=== PATIENT | male | born 1995 | race Caucasian/White ===

== ENCOUNTER 2024-04-25 00:37 | Inpatient (IN) | payer OTHER ==
[~2024-04-25] VITALS: Ht 190.5 cm; Wt 70.6 kg
[2024-04-25] VITALS (55 sets, daily range): BP systolic 83–110; BP diastolic 43–75
[2024-04-25] MEDS ORDERED: NS 1,000 ML IV SCH (01:20)
[2024-04-25] MEDS ORDERED: LORazepam 1 MG Tab PO ONE (02:50)
[2024-04-25] MEDS ORDERED: LORazepam 2 MG/ML 1ML Injection IV ONE ×2 (03:50→05:15)
[2024-04-25 05:23] LABS: BASOPHILS ABSOLUTE AUTO 0.01 K/mm3 (0.00-0.23); BASOPHILS PERCENT AUTO 0 % (0-2); EOSINOPHILS ABSOLUTE AUTO 0.04 K/mm3 (0.00-0.68); EOSINOPHILS PERCENT AUTO 1 % (0-6); Hematocrit 35.1 % (37.0-53.0); IMMATURE GRAN ABSOLUTE AUTO 0.01 K/mm3 (0.00-0.10); IMMATURE GRAN PERCENT AUTO 0 % (0-1); LYMPHOCYTES ABSOLUTE AUTO 0.55 K/mm3 (0.84-5.20); LYMPHOCYTES PERCENT AUTO 15 % (21-46); MONOCYTES ABSOLUTE AUTO 0.31 K/mm3 (0.16-1.47); MONOCYTES PERCENT AUTO 9 % (4-13); Mean Corpuscular HGB 34.1 pg (26.0-34.0); Mean Corpuscular HGB Conc 34.2 g/dL (31.5-36.5); Mean Corpuscular Volume 100 fL (80-100); Mean Platelet Volume 12.4 fL (9.1-12.4); NEUTROPHILS ABSOLUTE AUTO 2.74 K/mm3 (1.96-9.15); NEUTROPHILS PERCENT AUTO 75 % (41-73); RDW Coefficient Variation 12.9 % (11.7-14.2); RDW Standard Deviation 47.7 fL (35.1-46.3); Red Blood Cell Count 3.52 M/mm3 (4.30-5.90); White Blood Cell Count 3.66 K/mm3 (4.00-11.30)
[2024-04-25 05:31] LABS: Platelet Count 25 K/mm3 (150-400)
[2024-04-25 05:48] LABS: Albumin/Globulin Ratio 0.7 (0.8-1.8); Bilirubin, Total 7.6 mg/dL (0.1-1.0); Bun/Creatinine Ratio 8.8 (12.0-20.0); Calcium, Blood 9.6 mg/dL (8.5-10.1); Creatinine, Blood 0.46 mg/dL (0.60-1.20); Globulin, Blood 4.4 g/dL (2.2-4.0); Potassium, Blood 3.2 mmol/L (3.5-5.5); Total Protein, Blood 7.4 g/dL (6.4-8.2)
[2024-04-25] MEDS ORDERED: Acetaminophen 325 MG TABLET PO PRN (06:15)
[2024-04-25] MEDS ORDERED: FLU VACC TS2024-25(6MOS UP)/PF 45 MCG/0.5 ML SYRINGE IM ONE (06:15)
[2024-04-25] MEDS ORDERED: LORazepam 2 MG/ML 1ML Injection IV PRN ×2 (06:15→06:20)
[2024-04-25] MEDS ORDERED: Haloperidol Lactate Inj. 5 MG/ML Injection IV ONE (06:15)
[2024-04-25] MEDS ORDERED: Midazolam HCL 1 MG/ML 5MLVIAL IV ONE (06:15)
[2024-04-25] MEDS ORDERED: Ondansetron HCl 2 MG / ML 2ML Vial IV PRN (06:20)
[2024-04-25 06:26] LABS: Bilirubin, Direct 5.9 mg/dL (0.0-0.3); Phosphorus, Blood 2.2 mg/dL (2.5-4.9)
[2024-04-25 06:29] LABS: Magnesium, Blood 0.8 mg/dL (1.6-2.4)
[2024-04-25] MEDS ORDERED: Folic Acid 1 MG in NS 50 ML IV SCH (06:31)
[2024-04-25] MEDS ORDERED: Thiamine HCl 100 MG in NS 50 ML IV SCH (06:32)
[2024-04-25] MEDS ORDERED: ChlordiazePOXIDE 25 MG Cap PO PRN (06:40)
[2024-04-25] MEDS ORDERED: Magnesium Sulf 2 GM/Water 50ML 50 ML IV ONE (06:45)
[2024-04-25] MEDS ORDERED: Potassium Chl 20MEQ/Water100ML 100 ML IV SCH (06:50)
[2024-04-25] MEDS ORDERED: Lactated Ringer's 1,000 ML IV SCH (07:00)
[2024-04-25] MEDS ORDERED: Potassium Chloride 20 MEQ TabCR PO ONE (07:00)
[2024-04-25 07:28] LABS: International Normalized Ratio 1.65
[2024-04-25] MEDS ORDERED: Mag Sulfate 1 GM/D5% 100ML 100 ML IV SCH (09:30)
[2024-04-25] MEDS ORDERED: Potassium Phosphate Dibasic 20 MM in Dextrose 5% 500 ML IV SCH (12:00)
[2024-04-25] MEDS ORDERED: MethylPREDNISolone Sod Succ 40 MG VIAL IV SCH (13:00)
[2024-04-25 13:04] LABS: BASOPHILS ABSOLUTE AUTO 0.02 K/mm3 (0.00-0.23); BASOPHILS PERCENT AUTO 1 % (0-2); EOSINOPHILS ABSOLUTE AUTO 0.06 K/mm3 (0.00-0.68); EOSINOPHILS PERCENT AUTO 2 % (0-6); Hematocrit 29.6 % (37.0-53.0); Hemoglobin 10.4 g/dL (13.5-17.5); IMMATURE GRAN ABSOLUTE AUTO 0.02 K/mm3 (0.00-0.10); IMMATURE GRAN PERCENT AUTO 1 % (0-1); LYMPHOCYTES ABSOLUTE AUTO 0.63 K/mm3 (0.84-5.20); LYMPHOCYTES PERCENT AUTO 20 % (21-46); MONOCYTES ABSOLUTE AUTO 0.33 K/mm3 (0.16-1.47); MONOCYTES PERCENT AUTO 10 % (4-13); Mean Corpuscular HGB 34.8 pg (26.0-34.0); Mean Corpuscular HGB Conc 35.1 g/dL (31.5-36.5); Mean Corpuscular Volume 99 fL (80-100); Mean Platelet Volume 11.6 fL (9.1-12.4); NEUTROPHILS ABSOLUTE AUTO 2.13 K/mm3 (1.96-9.15); NEUTROPHILS PERCENT AUTO 67 % (41-73); RDW Standard Deviation 46.7 fL (35.1-46.3); Red Blood Cell Count 2.99 M/mm3 (4.30-5.90); White Blood Cell Count 3.19 K/mm3 (4.00-11.30)
[2024-04-25 13:12] LABS: Platelet Count 30 K/mm3 (150-400)
[2024-04-25 13:32] LABS: Magnesium, Blood 1.8 mg/dL (1.6-2.4)
[2024-04-25 13:51] LABS: Albumin, Blood 2.5 g/dL (3.4-5.0); Albumin/Globulin Ratio 0.7 (0.8-1.8); Bilirubin, Total 6.8 mg/dL (0.1-1.0); Bun/Creatinine Ratio 10.4 (12.0-20.0); Calcium, Blood 9.1 mg/dL (8.5-10.1); Creatinine, Blood 0.38 mg/dL (0.60-1.20); Globulin, Blood 3.7 g/dL (2.2-4.0); Potassium, Blood 3.7 mmol/L (3.5-5.5); Total Protein, Blood 6.2 g/dL (6.4-8.2)
--- NOTE | 2024-04-25 17:35 | NUR ---
SHIFT SUMMARY PRECEDEX OFF FOR MOST OF SHIFT. MEDICATED WITH LIBRIUM AND ATIVAN PER EMAR FOR CIWA SCORES. MAX CIWA SCORE 14. PATIENT IS IMPULSIVE AT TIMES, BUT EASILY REDIRECTABLE. ABLE TO STAND AND PIVOT FROM BED TO CHAIR WITH GAIT BELT AND WALKER. PATIENT TOLERATED WATER INTAKE AND CLEAR LIQUID DIET WELL. NO FAMILY OR VISITORS AT BEDSIDE. PATIENT HAD URINARY RETENTION-BLADDER SCAN SHOWED 311ML IN BLADDER. LATER IN THE EVENING PATIENT WAS ABLE TO VOID 550ML. NO BM THIS SHIFT. LR REMAINS INF @ 100ML/HR X 1 BAG. NO OTHER CHANGES THIS SHIFT.
--- NOTE | 2024-04-25 21:36 | NUR ---
ASSUMPTION OF CARE PT LYING IN BED SLEEPING. PT AWAKES TO VOICE, REMAINS SLEEPY, WITH SLURRED VOICE BUT IS OTHERWISE ORIENTED, EXCEPT SPECIFICS OF EVENTS THAT LED HIM FROM [facility] TO [facility] ICU. PRECEDEX IS OFF. CIWA SCORE LOW. HR STABLE NSR AND BP STABLE. LUNGS CLEAR AND RESPIRATIONS UNLABORED. PT HANDLING CLEAR LIQUID DIET WITHOUT NAUSEA/VOMITING. LR INFUSING INTO ONCE OF 4 PIV AT 100 ML/HR. 25 OF LIBRIUM ADMINISTERED, ALONG WITH ROOM RE-ORIENTATION. PT LEFT WITH CALL LIGHT NEARBY.
[2024-04-26] VITALS (28 sets, daily range): BP systolic 86–115; BP diastolic 46–75
[2024-04-26] MEDS ORDERED: Pantoprazole Sodium 40 MG Injection IV SCH (06:00)
--- NOTE | 2024-04-26 06:35 | NUR ---
SHIFT SUMMARY PT LYING IN BED EATING CHICKEN NOODLE SOUP. PT AWAKES TO VOICE, REMAINS SLEEPY, WITH CLEAR VOICE AND MOSTLY ORIENTED, EXCEPT SPECIFICS OF EVENTS THAT LED HIM FROM [facility] TO [facility] ICU. PRECEDEX IS OFF. CIWA SCORE LOW. HR STABLE NSR AND BP STABLE. LUNGS CLEAR AND RESPIRATIONS UNLABORED. PT HANDLING CLEAR LIQUID DIET PLUS CRACKERS AND CHICKEN NOODLE SOUP WITHOUT NAUSEA/VOMITING. LR INFUSING INTO ONE OF 4 PIV AT 100 ML/HR. PT LEFT WITH CALL LIGHT NEARBY.
--- NOTE | 2024-04-26 07:09 | NUR ---
Bedside report from BENJAMIN Sue. Pt is sleeping but awakens easily to conversation. Denies nausea, pain. Per report tolerated clear liquids as well as chicken noodle soup and saltine crackers overnight. V/S are stable. Sinus rhythm, 93 bpm noted on bedside monitor.
--- NOTE | 2024-04-26 07:17 | NUR ---
LAB HERE TO DRAW BLOOD.
[2024-04-26 07:55] LABS: BASOPHILS ABSOLUTE AUTO 0.01 K/mm3 (0.00-0.23); BASOPHILS PERCENT AUTO 0 % (0-2); EOSINOPHILS ABSOLUTE AUTO 0.07 K/mm3 (0.00-0.68); EOSINOPHILS PERCENT AUTO 2 % (0-6); Hematocrit 30.6 % (37.0-53.0); Hemoglobin 10.3 g/dL (13.5-17.5); IMMATURE GRAN ABSOLUTE AUTO 0.02 K/mm3 (0.00-0.10); IMMATURE GRAN PERCENT AUTO 0 % (0-1); LYMPHOCYTES ABSOLUTE AUTO 0.66 K/mm3 (0.84-5.20); LYMPHOCYTES PERCENT AUTO 15 % (21-46); MONOCYTES ABSOLUTE AUTO 0.34 K/mm3 (0.16-1.47); MONOCYTES PERCENT AUTO 8 % (4-13); Mean Corpuscular HGB 34.7 pg (26.0-34.0); Mean Corpuscular HGB Conc 33.7 g/dL (31.5-36.5); Mean Corpuscular Volume 103 fL (80-100); NEUTROPHILS ABSOLUTE AUTO 3.44 K/mm3 (1.96-9.15); NEUTROPHILS PERCENT AUTO 76 % (41-73); RDW Coefficient Variation 13.2 % (11.7-14.2); RDW Standard Deviation 50.3 fL (35.1-46.3); Red Blood Cell Count 2.97 M/mm3 (4.30-5.90); White Blood Cell Count 4.54 K/mm3 (4.00-11.30)
[2024-04-26 08:03] LABS: Platelet Count 48 K/mm3 (150-400)
[2024-04-26 08:14] LABS: Albumin, Blood 2.2 g/dL (3.4-5.0); Albumin/Globulin Ratio 0.6 (0.8-1.8); Bun/Creatinine Ratio 10.9 (12.0-20.0); Creatinine, Blood 0.37 mg/dL (0.60-1.20); Globulin, Blood 3.8 g/dL (2.2-4.0); Potassium, Blood 3.3 mmol/L (3.5-5.5)
--- NOTE | 2024-04-26 09:29 | NUR ---
Dr. Hutson here rounding on the patient.
[2024-04-26] MEDS ORDERED: Potassium Phosphate Dibasic 20 MM in Dextrose 5% 500 ML IV STA (09:55)
--- NOTE | 2024-04-26 10:56 | NUR ---
PT is sleeping, awakens easily, and no longer has the visible tremors of his hands and arms. Appears to be pretty comfortable, no anxiety/pain at this time.
--- NOTE | 2024-04-26 11:31 | NUR ---
Ultrasound is in progress in the pt's room. Pt's partner, Jovi, is at the bedside. Notified pt that [facility] called and said that they will have a staff member bring over the pt's belongings this afternoon. Jovi states that he has the pt's wallet and cellphone. Pt is asking when he will get out of the hospital, and then asking for AMA papers to sign so that he can leave. Jovi telling pt that he shouldn't worry about work, but he should stay in the hospital and get treatment. Pt appears slightly anxious, mildly agitated but he is cooperative and conversant. Call to Dr. Hutson to let him know that the partner, Jovi, of the pt is here visiting.
--- NOTE | 2024-04-26 11:54 | NUR ---
Medical student and resident MD talked with Augusto at the bedside.
--- NOTE | 2024-04-26 12:06 | NUR ---
Standby assist to toilet to void. He is eating lunch. Denies any withdrawl symptoms. CIWA score 1 at this time.
[2024-04-26] MEDS ORDERED: Nicotine 21 MG PATCH TOP SCH (14:00)
--- NOTE | 2024-04-26 14:01 | NUR ---
Pt has CIWA score of 0. His partner came out to ask for extra IVs to be removed, for a nicotine patch and said pt might also need something for anxiety as he is "angry". I spoke with pt and he would take a nicotine patch. Denies anxiety, states "I just don't want to be here". Declines any medication for anxiety, states that it just makes him drowsy and nauseated. Dr. Hutson called to request nicotine patch.
--- NOTE | 2024-04-26 15:39 | NUR ---
"Spiritual Care | Nurse request Pt. is awake and his partner is at his bedside when I enter the room. Pt. is unsettled about being hospitalized, and verbalized a desire [place] Listened with empathy and a calming presence. Partner verbally discouraged the pt. from pusuing a discharge. Pt. verbalized that his jacob was part of his history but there was displayed no openness to consider what it meant to hem in the present. Will remain available to the pt. and the staff assigned to his care."
[2024-04-26] MEDS ORDERED: B-1100 M1 PO (17:15)
[2024-04-26] MEDS ORDERED: NICO21TP TOP (17:15)
[2024-04-26] MEDS ORDERED: FOLI1 PO (17:15)
--- NOTE | 2024-04-26 17:43 | NUR ---
Pt was insistent that he was leaving the hospital, but declined returning to [facility]. He has not needed any medications for withdrawl symptoms since 0900 this morning. CIWA score for the past 6 hours was 0-1. Ambulatory in the room, to the toilet and tolerated p.o. liquids and soft foods today without difficulty. His partner Jovi was here to take him home. Prescriptions were called into [place] pharmacy, per pt request. Discharge instructions reviewed with the patient and his partner. Pt was ambulatory at discharge, accompanyied by Jovi to private vehicle.
--- NOTE | 2024-04-26 17:48 | NUR ---
Bag of medications which were brought by [facility] staff to the hospital today were returned to the patient from the pharmacy.
[2024-04-27 12:23] LABS: HEPATITIS A ANTIBODY, IGM Negative (Negative); HEPATITIS B CORE ANTIBODY, IGM Negative (Negative); HEPATITIS B SURFACE ANTIGEN Negative (Negative); HEPATITIS C AB CIA INTERP Negative (Negative); HEPATITIS C ANTIBODY CIA INDEX 0.15 IV
== END 2024-04-26 17:30 | disposition home or self-care (01) | DRG 896 ==
LOC: ER 00:37 → ERHOLD 06:11 → ICUE 06:11
PROVIDERS: Emergency Medicine; Registered Nurse; ADMIT Student in an Organized Health Care Education/Training Program
DX: F10.231 Alcohol dependence with withdrawal delirium (principal); I81 Portal vein thrombosis; E72.20 Disorder of urea cycle metabolism, unspecified; D61.818 Other pancytopenia; K70.30 Alcoholic cirrhosis of liver without ascites; E87.6 Hypokalemia; E83.39 Other disorders of phosphorus metabolism; E83.42 Hypomagnesemia; D53.9 Nutritional anemia, unspecified; E86.0 Dehydration; E80.6 Other disorders of bilirubin metabolism; Z88.5 Allergy status to narcotic agent
CPT/HCPCS: 36415; 70450; 76705; 80053; 80074; 82140; 82248; 82607; 82746; 83690; 83735; 84100; 85025; 85060; 85610; 85730; 93975; 96361; 96374; 96376; 99285-25; A9270; J1630; J2060; J2250; J2405; J2470; J2919; J3411; J3475; J3480; J7030; J7050; J7060; J7120